=== PATIENT | male | born 1965 | race Caucasian/White ===

== ENCOUNTER 2016-06-08 14:05 | Emergency (ER) | payer SELFPAY ==
[~2016-06-08] VITALS: Ht 172.7 cm; Wt 90.0 kg
[~2016-06-08 14:05] MED LIST: CYCL-36 PO; IBUP800 PO; PRED50TA PO
[2016-06-08 14:07] VITALS: BP 130/70; PULSE 104; RESP 16; TEMP 98.2; O2SAT 100
[2016-06-08] MEDS ORDERED: MORPHINE SULFATE 4 MG/ML INJ IV PUSH ONE (14:45)
[2016-06-08] MEDS ORDERED: ONDANSETRON HCL 4 MG/2 ML VIAL IV PUSH ONE (14:45)
[2016-06-08] MEDS ORDERED: KETOROLAC TROMETHAMINE 30 MG/ML (IVP) VIAL IV PUSH ONE (14:45)
--- NOTE | 2016-06-08 14:49 | PD ---
HPI Chief Complaint: Pain: Acute or Chronic Time Seen by Provider: 14:45 Travel History International Travel<30 days: No Contact w/Intl Traveler<30days: No Traveled to known affect area: No History of Present Illness HPI 51-year-old male to presents to the ED for evaluation of right hip pain with possible hernia. Per patient she's had this for about 2 days. Per patient is progressively getting worse and become more severe where he cannot barely walk. 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 Per patient started yesterday on his head but he thought maybe he pulled something in his groin. Per patient he seems like it wraps from the mid frontal hip to the posterior hip like a band. He denies any falls or injuries that he could think of. He does do a lot of heavy lifting and he has a history of hernias with repair in the past but states that this doesn't feel like that and he hasn't felt any hernia in the area where he has the pain. He denies any testicular pain. No urinary issues. Denies any numbness, tilling, weakness. No prior surgeries to this area. Still has an appendix. Denies any bowel movement or urinary issues. Per patient the pain is more positional. Per patient he can't stand but he cannot rotate the hip without severe pain. Patient cannot flex or extend the hip without severe pain. Per patient when the pain is severe is 10 out of 10. Otherwise 3 out of 10. PFSH Past Medical History Respiratory: Yes (ASTHMA) Social History Alcohol Use: No Tobacco Use: No Substance Use: No Allergies-Medications (Allergen,Severity, Reaction): Coded Allergies: No Known Allergies (Verified , 03/19/16) Reported Meds & Prescriptions Reported Meds & Active Scripts Active Reported Zoloft (Sertraline HCl) 100 Mg Tab 100 Mg PO DAILY Review of Systems Except as stated in HPI: all other systems reviewed are Neg Physical Exam Narrative GENERAL: SKIN: Warm and dry. HEAD: Atraumatic. Normocephalic. EYES: Pupils equal and round. No scleral icterus. No injection or drainage. ENT: No nasal bleeding or discharge. Mucous membranes pink and moist. NECK: Trachea midline. No JVD. CARDIOVASCULAR: Regular rate and rhythm. RESPIRATORY: No accessory muscle use. Clear to auscultation. Breath sounds equal bilaterally. GASTROINTESTINAL: Abdomen soft, non-tender, nondistended. Hepatic and splenic margins not palpable. MUSCULOSKELETAL: Extremities without clubbing, cyanosis, or edema. No obvious deformities. Patient has pain with internal and external rotation of the right hip as well as with flexion and extension. Pain with standing but able to stand on it if not moving. Patient doesn't have any obvious deformity on the hip and no obvious bulging or hernia noted in the area of pain. Most of the pain appears to be on the medial aspect of the hip. 2+ pulses bilaterally. NEUROLOGICAL: Awake and alert. No obvious cranial nerve deficits. Motor grossly within normal limits. Five out of 5 muscle strength in the arms and legs. Normal speech. PSYCHIATRIC: Appropriate mood and affect; insight and judgment normal. Data Data Last Documented VS Vital Signs Date Time Temp Pulse Resp B/P Pulse Ox O2 Delivery O2 Flow Rate FiO2 06/08/16 14:07 98.2 104 16 130/70 100 Orders Complete Blood Count With Diff (06/08/16 14:37) Basic Metabolic Panel (Bmp) (06/08/16 14:37) Iv Access Insert/Monitor (06/08/16 14:37) Hip, Uni(4+Vws) W Ap Pelvis (06/08/16 ) Morphine Inj (Morphine Inj) (06/08/16 14:45) Ondansetron Inj (Zofran Inj) (06/08/16 14:45) Ketorolac Inj (Toradol Inj) (06/08/16 14:45) Ct Abd/Pel W Iv Contrast(Rout) (06/08/16 15:57) Iohexol 350 Inj (Omnipaque 350 Inj) (06/08/16 17:35) Labs Laboratory Tests Test 06/08/16 15:34 White Blood Count 10.9 TH/MM3 Red Blood Count 5.06 MIL/MM3 Hemoglobin 15.7 GM/DL Hematocrit 44.4 % Mean Corpuscular Volume 87.8 FL Mean Corpuscular Hemoglobin 31.0 PG Mean Corpuscular Hemoglobin 35.3 % Concent Red Cell Distribution Width 13.2 % Platelet Count 270 TH/MM3 Mean Platelet Volume 7.3 FL Neutrophils (%) (Auto) 73.6 % Lymphocytes (%) (Auto) 18.9 % Monocytes (%) (Auto) 5.8 % Eosinophils (%) (Auto) 1.2 % Basophils (%) (Auto) 0.5 % Neutrophils # (Auto) 8.0 TH/MM3 Lymphocytes # (Auto) 2.1 TH/MM3 Monocytes # (Auto) 0.6 TH/MM3 Eosinophils # (Auto) 0.1 TH/MM3 Basophils # (Auto) 0.1 TH/MM3 CBC Comment DIFF FINAL Differential Comment Sodium Level 139 MEQ/L Potassium Level 3.9 MEQ/L Chloride Level 106 MEQ/L Carbon Dioxide Level 24.9 MEQ/L Anion Gap 8 MEQ/L Blood Urea Nitrogen 17 MG/DL Creatinine 1.03 MG/DL Estimat Glomerular Filtration 77 ML/MIN Rate Random Glucose 116 MG/DL Calcium Level 9.1 MG/DL MDM Medical Decision Making Medical Screen Exam Complete: Yes Emergency Medical Condition: Yes Medical Record Reviewed: Yes Interpretation(s) CBC & BMP Diagram 06/08/16 15:34 Last Impressions Hip and Pelvis X-Ray 06/08/16 0000 Signed Impressions: Service Date/Time: Wednesday, June 08, 2016 15:07 - CONCLUSION: Unremarkable examination of the right hip. Candelario Astorga MD CT of the abdomen and pelvis show what appears to be a right-sided fat- containing inguinal hernia with right hip posterior arthritis. Differential Diagnosis Hip pain versus fracture versus herniated versus muscle strain Narrative Course 51-year-old male that presents to the ED for evaluation of medial groin pain. Patient was properly examined and was found to have signs and symptoms which appear to be more consistent with muscle scale pain but can't rule out strangulate hernia. At this time I recommend imaging as well as labs. CT of the abdomen will be done to rule out any sign of acute disease including hernia but also to better visualize the hip. Labs and imaging show what appears to be also arthritis of the right hip as well as fat-containing inguinal hernia but no sign of bowel hernia. Case was discussed in my attending Dr. Ray who recommends pain medication and follow-up outpatient with general surgery if pain does not improve. Patient was told this. Patient was given note for work. See ED worsening symptoms. Diagnosis Primary Impression: Hernia Additional Impression: Groin pain, chronic, right Referrals: Ramin Bowie MD Patient Instructions: General Instructions, Narcotic given in the ED Additional Instructions: Take medications as prescribed. Follow-up with general surgeon See ED for any worsening symptoms. Do not drink or drive while taking pain medication. Apply ice or heat as needed for pain Med/Other Pt SpecificInfo: Prescription(s) given Scripts Ibuprofen 800 Mg Boc036 Mg PO Q8H PRN (Pain/Inflammation) #30 TAB Prov:Pj Ray MD 06/08/16 Oxycodone-Acetaminophen (Percocet)5-325 mg Tab1 Tab PO Q6H PRN (PAIN) #20 TAB Ref 0 Prov:Pj Ray MD 06/08/16 Disposition: 01 DISCHARGE HOME Condition: Eliu Anne Jun 08, 2016 14:49
--- NOTE | 2016-06-08 15:12 | RADRPT ---
EXAM DATE/TIME: 06/08/2016 15:07 [facility] COMPARISON: No previous studies available for comparison. INDICATIONS : Right hip pain, no known trauma. MEDICAL HISTORY : None. SURGICAL HISTORY : Hernia 10 years ago. ENCOUNTER: Initial ACUITY: 2 days PAIN SCORE: 9/10 LOCATION: Right Hip. FINDINGS: Examination of the right hip was performed with AP pelvis. The primary and secondary trabecular kathryn yahir of the femoral neck is intact. The hip joint is of normal width without significant sclerosis or bony hypertrophy. The acetabulum is grossly intact. CONCLUSION: Unremarkable examination of the right hip. Candelario Astorga MD on June 08, 2016 at 15:06 Board Certified Radiologist. This report was verified electronically.
[2016-06-08 16:07] LABS: BASOPHIL # 0.1 TH/MM3 (0-0.2); BASOPHIL % 0.5 % (0.0-2.0); EOSINOPHIL # 0.1 TH/MM3 (0-0.4); EOSINOPHIL % 1.2 % (0.0-4.0); HEMATOCRIT 44.4 % (39.0-51.0); HEMO FLAGS DIFF FINAL; LYMPH % 18.9 % (9.0-44.0); LYMPHOCYTE # 2.1 TH/MM3 (1.0-4.8); MEAN CELL VOLUME 87.8 FL (80.0-100.0); MEAN CORPUSCULAR HGB CONC 35.3 % (32.0-36.0); MONO % 5.8 % (0.0-8.0); NEUT % 73.6 % (16.0-70.0); PLATELET COUNT 270 TH/MM3 (150-450); RED BLOOD COUNT 5.06 MIL/MM3 (4.50-5.90); RED CELL DISTRIBUTION WIDTH 13.2 % (11.6-17.2); WHITE BLOOD COUNT 10.9 TH/MM3 (4.0-11.0)
[2016-06-08] MEDS ORDERED: ZOLO100T PO (16:21)
[2016-06-08 17:07] LABS: BICARBONATE 24.9 MEQ/L (21.0-32.0)
[2016-06-08 17:08] LABS: POTASSIUM 3.9 MEQ/L (3.5-5.1)
[2016-06-08] MEDS ORDERED: IOHEXOL 350 MG/ML 10 ML VIAL (for RAD DIAG) IV ONE (17:35)
--- NOTE | 2016-06-08 17:49 | RADRPT ---
EXAM DATE/TIME: 06/08/2016 17:09 [facility] COMPARISON: No previous studies available for comparison. INDICATIONS : Right inguinal and hip pain. IV CONTRAST: 96 cc Omnipaque 350 (iohexol) IV ORAL CONTRAST: No oral contrast ingested. RADIATION DOSE: 9.96 CTDIvol (mGy) MEDICAL HISTORY : Hypertension. SURGICAL HISTORY : Umbilical hernia repair. ENCOUNTER: Subsequent ACUITY: 2 days PAIN SCALE: Non-responsive LOCATION: Right lower quadrant TECHNIQUE: Volumetric scanning of the abdomen and pelvis was performed. Using automated exposure control and ad justment of the mA and/or kV according to patient size, radiation dose was kept as low as reasonably achievable to obtain optimal diagnostic quality images. FINDINGS: Lung bases are clear. There are 2 small lesions noted in the liver in the right lobe measuring about 1.5 cm and 1 cm in diameter. It may represent small cysts or hemangiomata. Spleen, adrenals, pancreas unremarkable. No calcified gallstones or biliary ductal dilatation. Small renal cysts. There is previous repair of the lower anterior abdominal wall and left inguinal region. There is loc iation of fat into the right inguinal canal. No herniation of bowel. There is mild osteoarthritis at the hips. No acute bony abnormalities. CONCLUSION: 1. Herniation of fat in the right inguinal canal. Mild right-sided osteoarthritis of the hip. Previou s repair of the lower anterior abdominal wall and left inguinal region. No acute findings within the abdomen and pelvis. Henok Bowser MD on June 08, 2016 at 17:37 Board Certified Radiologist. This report was verified electronically.
[2016-06-08] MEDS ORDERED: IBUP800T23 PO (18:00)
[2016-06-08] MEDS ORDERED: PERC5TAB12 PO (18:00)
== END 2016-06-08 18:48 | disposition home or self-care (01) ==
LOC: NETRI 14:05
DX: K40.90 Unilateral inguinal hernia, without obstruction or gangrene, not specified as recurrent (principal)
CPT/HCPCS: 73503; 74177; 80048; 85025; 96374; 96375; 99284; J1885; J2405; Q9967